=== PATIENT | male | born 1990 | race Caucasian/White ===

== ENCOUNTER 2016-12-21 18:17 | Emergency (ER) | payer SELFPAY ==
[2016-12-21] MEDS ORDERED: NS 1,000 ML IV ONE ×2 (18:57→20:22)
--- NOTE | 2016-12-21 19:00 | EDPHY ---
H & P Stated Complaint: RLQ pain x several hours;sent for eval from Time Seen by Provider: 12/21/16 18:52 HPI/ROS: CHIEF COMPLAINT: Right lower quadrant abdominal pain HISTORY OF PRESENT ILLNESS: 26-year-old male arrives via private vehicle complaining of right lower quadrant abdominal pain since approximately 4:00 p.m. today. He initially went to [facility] was referred to the ER for concerns over localized right lower quadrant pain possible appendicitis. He is complaining of mild nausea. No vomiting. Normal bowel movements. No urinary abnormality. No radiation of pain. No history of similar. No history of abdominal surgeries. No trauma. No testicular pain. Last oral intake at 1:00 p.m. PRIMARY CARE PROVIDER: none REVIEW OF SYSTEMS: A ten point review of systems was performed and is negative with the exception of the items mentioned in the HPI PAST MEDICAL & SURGICAL HISTORY: No pertinent medical or surgical history SOCIAL HISTORY: Nonsmoker PHYSICAL EXAM (Prior to examination, patient consented to physical exam, hands were washed and my usual and customary physical exam procedures followed) 1) GENERAL: Well-developed, well-nourished, alert and oriented. Appears uncomfortable 2) HEAD: Normocephalic, atraumatic 3) HEENT: Pupils equal, round, reactive to light bilaterally. Sclera anicteric. Nasopharynx, oropharynx, clear, no lesions. Dry mucous membranes 4) NECK: Full range of motion, no meningeal signs. 5) LUNGS: Clear auscultation bilaterally, no wheezes, no rhonchi, no retractions. 6) HEART: Regular rate and rhythm, no murmur, no heave, no gallop. 7) ABDOMEN: No guarding, positive McBurney's point pain, negative Pereira's, negative Rovsing's, negative peritoneal sign, 8) MUSCULOSKELETAL: Moving all extremities, no focal areas of tenderness, no obvious trauma. No peripheral edema or discoloration. 9) BACK: No CVA tenderness, no midline vertebral tenderness, no fluctuance, no step-off, no obvious trauma, no visual or palpable abnormality. 10) SKIN: No rash, no petechiae. 11) : Normal male external genitalia bilateral testicles nontender with cremasteric reflex present and brisk bilaterally. No perineal pain. Inguinal mass.. DIFFERENTIAL DIAGNOSIS: My differential diagnosis includes, but is not limited to, acute appendicitis, acute cholecystitis, bowel obstruction, acute pancreatitis, [testicular torsion, gastritis and urinary tract infection. The patient understands that this diagnosis is provisional and can never be 100% accurate. This is a partial list of diagnoses considered. These considerations are based on history, physical exam, past history and reassessment. - Personal History Current Tetanus Diphtheria and Acellular Pertussis (TDAP): Yes - Medical/Surgical History Other PMH: healthy - Social History Smoking Status: Current every day smoker Constitutional: Initial Vital Signs Temperature (C) 36.7 C 12/21/16 18:25 Heart Rate 87 12/21/16 18:25 Respiratory Rate 16 12/21/16 18:25 Blood Pressure 129/77 H 12/21/16 18:25 O2 Sat (%) 97 12/21/16 18:25 O2 Delivery Mode Room Air Allergies/Adverse Reactions: No Known Allergies Allergy (Unverified 12/21/16 18:29) Home Medications: Medication Instructions Recorded NK [No Known Home Meds] 12/21/16 Medical Decision Making - Diagnostics Imaging Results: Imaging Impressions Abdomen/Pelvis CT 12/21/16 18:58 Impression: 1. There is a normal appearance of the appendix. 2. There is no evidence of nephrolithiasis or obstructive uropathy. There is ectopic positioning of the right kidney, which is situated at the pelvic inlet. Attention: This CT examination is specifically designed to evaluate patients who are clinically suspected of having acute obstructive uropathy. This examination does not use radiographic contrast, and as such, provides only a limited evaluation of the abdomen, pelvis, and retroperitoneum. If there is further clinical suspicion for pathological conditions other than obstructive uropathy, a complete CT evaluation of the abdomen and pelvis utilizing intravenous, oral, and rectal contrast should be considered. Findings were discussed with Juan Crawford PA-C at 19:55, on 12/21/2016. Images reviewed by myself Imaging: Discussed imaging studies w/ order caller Radiologist ED Course/Re-evaluation: 7:00 p.m.: Patient remains NPO since 1:00 p.m.. Plan will be i-STAT, CT imaging for concerns possible appendicitis 9:25 p.m.: Patient has been re-evaluated with serial exams. At this time he is sitting upright in the bed, dressed, states that he would like to leave. States that he is asymptomatic. He has not received any analgesia while in the emergency department. I re-examined his abdomen at this time which is soft no guarding or rebound no McBurney's point pain. He denies testicular pain. Discussed his imaging results showing normal appearing appendix. He is noted to have an ectopic kidney with no evidence of hydronephrosis or obstruction. Reviewed his normal urinalysis. At this time I do not think that hospital admission is currently indicated. Doubt acute surgical abdominal pathology. He has been given acute abdominal precautions instructions. Given urology follow-up information. Feels comfortable being discharged. - Data Points Laboratory Results: Laboratory Results 12/21/16 19:00 12/21/16 19:00 12/21/16 12/21/16 12/21/16 20:40 19:00 19:00 WBC 8.14 10^3/uL 10^3/uL (3.80-9.50) RBC 4.77 10^6/uL 10^6/uL (4.40-6.38) Hgb 15.3 g/dL g/dL (13.7-17.5) POC Hgb Hct 42.9 % % (40.0-51.0) POC Hct MCV 89.9 fL fL (81.5-99.8) MCH 32.1 pg pg (27.9-34.1) MCHC 35.7 g/dL g/dL (32.4-36.7) RDW 11.9 % % (11.5-15.2) Plt Count 227 10^3/uL 10^3/uL (150-400) MPV 10.2 fL fL (8.7-11.7) Neut % (Auto) 55.6 % % (39.3-74.2) Lymph % (Auto) 37.6 % % (15.0-45.0) [place] % (Auto) 5.8 % % (4.5-13.0) Eos % (Auto) 0.7 % % (0.6-7.6) Baso % (Auto) 0.2 % L % (0.3-1.7) Nucleat RBC Rel Count 0.0 % % (0.0-0.2) Absolute Neuts (auto) 4.52 10^3/uL 10^3/uL (1.70-6.50) Absolute Lymphs (auto) 3.06 10^3/uL H 10^3/uL (1.00-3.00) Absolute Monos (auto) 0.47 10^3/uL 10^3/uL (0.30-0.80) Absolute Eos (auto) 0.06 10^3/uL 10^3/uL (0.03-0.40) Absolute Basos (auto) 0.02 10^3/uL 10^3/uL (0.02-0.10) Absolute Nucleated RBC 0.00 10^3/uL 10^3/uL (0-0.01) Immature Gran % 0.1 % % (0.0-1.1) Immature Gran # 0.01 10^3/uL 10^3/uL (0.00-0.10) POC Sodium Sodium 140 mEq/L mEq/L (134-144) POC Potassium Potassium 4.1 mEq/L mEq/L (3.5-5.2) POC Chloride Chloride 105 mEq/L mEq/L (97-110) Carbon Dioxide 21 mEq/l L mEq/l (22-31) Anion Gap 14 mEq/L mEq/L (8-16) POC BUN BUN 17 mg/dL mg/dL (7-23) Creatinine 1.2 mg/dL mg/dL (0.7-1.3) POC Creatinine Estimated GFR > 60 Glucose 81 mg/dL mg/dL (70-100) POC Glucose Calcium 10.1 mg/dL mg/dL (8.5-10.4) Total Bilirubin 0.8 mg/dL mg/dL (0.1-1.4) Conjugated Bilirubin 0.3 mg/dL mg/dL (0.0-0.5) Unconjugated Bilirubin 0.5 mg/dL mg/dL (0.0-1.1) AST 27 IU/L IU/L (17-59) ALT 38 IU/L IU/L (21-72) Alkaline Phosphatase 59 IU/L IU/L (38-126) Total Protein 7.6 g/dL g/dL (6.3-8.2) Albumin 4.8 g/dL g/dL (3.5-5.0) Lipase 114 IU/L IU/L (23-300) Urine Color YELLOW Urine Appearance CLEAR Urine pH 5.0 (5.0-7.5) Ur Specific [place] 1.019 (1.002-1.030) Urine Protein NEGATIVE (NEGATIVE) Urine Ketones NEGATIVE (NEGATIVE) Urine Blood NEGATIVE (NEGATIVE) Urine Nitrate NEGATIVE (NEGATIVE) Urine Bilirubin NEGATIVE (NEGATIVE) Urine Urobilinogen NEGATIVE EU EU (0.2-1.0) Ur Leukocyte Esterase NEGATIVE (NEGATIVE) Urine RBC 1-3 /hpf /hpf (0-3) Urine WBC 1-3 /hpf /hpf (0-3) Ur Epithelial Cells NONE SEEN /lpf /lpf (NONE-1+) Urine Mucus TRACE /lpf /lpf (NONE-1+) Urine Glucose NEGATIVE (NEGATIVE) 12/21/16 18:52 WBC RBC Hgb POC Hgb 16.3 gm/dL gm/dL (13.7-17.5) Hct POC Hct 48 % % (40-51) MCV MCH MCHC RDW Plt Count MPV Neut % (Auto) Lymph % (Auto) [place] % (Auto) Eos % (Auto) Baso % (Auto) Nucleat RBC Rel Count Absolute Neuts (auto) Absolute Lymphs (auto) Absolute Monos (auto) Absolute Eos (auto) Absolute Basos (auto) Absolute Nucleated RBC Immature Gran % Immature Gran # POC Sodium 142 mEq/L mEq/L (134-144) Sodium POC Potassium 3.7 mEq/L mEq/L (3.3-5.0) Potassium POC Chloride 104 mEq/L mEq/L (97-110) Chloride Carbon Dioxide Anion Gap POC BUN 18 mg/dL mg/dL (7-23) BUN Creatinine POC Creatinine 1.4 mg/dL H mg/dL (0.7-1.3) Estimated GFR Glucose POC Glucose 81 mg/dL mg/dL (70-100) Calcium Total Bilirubin Conjugated Bilirubin Unconjugated Bilirubin AST ALT Alkaline Phosphatase Total Protein Albumin Lipase Urine Color Urine Appearance Urine pH Ur Specific [place] Urine Protein Urine Ketones Urine Blood Urine Nitrate Urine Bilirubin Urine Urobilinogen Ur Leukocyte Esterase Urine RBC Urine WBC Ur Epithelial Cells Urine Mucus Urine Glucose Medications Given: Discontinued Medications Sodium Chloride (Ns) 1,000 mls @ 0 mls/hr IV EDNOW ONE; Wide Open PRN Reason: Protocol Stop: 12/21/16 18:58 Last Admin: 12/21/16 19:02 Dose: 1,000 mls Sodium Chloride (Ns) 1,000 mls @ 0 mls/hr IV EDNOW ONE; Wide Open PRN Reason: Protocol Stop: 12/21/16 20:23 Last Admin: 12/21/16 20:25 Dose: 1,000 mls Point of Care Test Results: 12/21/16 18:52 POC Sodium 142 POC Potassium 3.7 POC Chloride 104 POC BUN 18 POC Creatinine 1.4 H POC Glucose 81 Departure - Departure Disposition: Home, Routine, Self-Care Clinical Impression: Ectopic kidney Abdominal pain Qualifiers: Abdominal location: right lower quadrant Qualified Code(s): R10.31 - Right lower quadrant pain Condition: Good Instructions: Acute Abdominal Pain (ED) Additional Instructions: Seek immediate medical attention if you develop new or worsening symptoms, if you develop fevers, chills, inability to tolerate oral intake or any other symptoms that concerns you. Referrals: Urban Alarcon MD [Medical Doctor] - 2-3 days, call for appt. (Dr. Urban Alarcon is a urologist)
[2016-12-21 19:06] LABS: % IMMATURE GRANULYOCYTES 0.1 % (0.0-1.1); ABSOLUTE IMMATURE GRANULOCYTES 0.01 10^3/uL (0.00-0.10); ADD DIFF? NO; ADD MORPH? NO; ADD SCAN? NO; ATYPICAL LYMPHOCYTE FLAG 0 (0-99); FRAGMENT RBC FLAG 0 (0-99); HEMATOCRIT 42.9 % (40.0-51.0); HEMOGLOBIN 15.3 g/dL (13.7-17.5); LEFT SHIFT FLG 0 (0-99); LIPEMIA HEMOLYSIS FLAG 90 (0-99); MEAN CELL HEMOGLOBIN 32.1 pg (27.9-34.1); MEAN CELL HEMOGLOBIN CONCENTR. 35.7 g/dL (32.4-36.7); MEAN CELL VOLUME 89.9 fL (81.5-99.8); MEAN PLATELET VOLUME 10.2 fL (8.7-11.7); PLATELET CLUMPS FLAG 10 (0-99); PLATELET COUNT 227 10^3/uL (150-400); RED BLOOD CELL COUNT 4.77 10^6/uL (4.40-6.38); RED CELL DISTRIBUTION WIDTH 11.9 % (11.5-15.2)
[2016-12-21 19:17] LABS: ALANINE AMINOTRANSFERASE 38 IU/L (21-72); ALBUMIN 4.8 g/dL (3.5-5.0); ALKALINE PHOSPHATASE 59 IU/L (38-126); ASPARTATE AMINOTRANSFERASE 27 IU/L (17-59); BILIRUBIN,TOTAL 0.8 mg/dL (0.1-1.4); BILIRUBIN-CONJUGATED 0.3 mg/dL (0.0-0.5); BILIRUBIN-UNCONJUGATED 0.5 mg/dL (0.0-1.1); CALCIUM 10.1 mg/dL (8.5-10.4); CARBON DIOXIDE 21 mEq/l (22-31); CHLORIDE 105 mEq/L (97-110); CREATININE 1.2 mg/dL (0.7-1.3); GLOMERULAR FILTRATION RATE > 60; GLUCOSE 81 mg/dL (70-100); POTASSIUM 4.1 mEq/L (3.5-5.2); TOTAL PROTEIN 7.6 g/dL (6.3-8.2)
[2016-12-21 19:25] LABS: ANION GAP 14 mEq/L (8-16); SODIUM 140 mEq/L (134-144)
[2016-12-21 21:05] LABS: COLOR YELLOW; LEUKOCYTE ESTERASE,URINE NEGATIVE (NEGATIVE); NITRITE,URINE NEGATIVE (NEGATIVE)
[2016-12-21 21:06] LABS: MUCUS TRACE /lpf (NONE-1+)
[2016-12-21 21:44] VITALS: BP 125/90; PULSE 59; RESP 18; TEMP 98.6; O2SAT 98
== END 2016-12-21 21:44 | disposition home or self-care (01) ==
DX: Q63.2 Ectopic kidney (principal); F17.200 Nicotine dependence, unspecified, uncomplicated; E86.9 Volume depletion, unspecified
CPT/HCPCS: 82947-QW